=== PATIENT | female | born 1970 | race African-American/Black ===

== ENCOUNTER 2023-05-24 13:46 | Emergency (ER) | payer OTHER ==
[~2023-05-24] VITALS: Ht 162.6 cm; Wt 80.0 kg
[2023-05-24 13:54] VITALS: TEMP 97.9
[2023-05-24] MEDS: KETOROLAC TROMETHAMINE 30 MG/ML VIAL IM ONE (18:16)
[2023-05-24] MEDS: LIDOCAINE 5% TRANSDERMAL PATCH TD ONE (18:17)
[2023-05-24] MEDS: HYDROCODONE/ACETAMINOPHEN 5-325 MG TABLET PO ONE (18:17)
[2023-05-24] MEDS ORDERED: LIDO700A15 TP (18:54)
[2023-05-24] MEDS ORDERED: TRAM-559 PO (19:05)
[2023-05-24 19:16] VITALS: BP 129/72; PULSE 80; RESP 18
== END 2023-05-24 19:19 | disposition home or self-care (01) ==
LOC: EMS 13:46
DX: M54.50 Low back pain, unspecified (principal)
CPT/HCPCS: 99283; 96372; J1885